=== PATIENT | female | born 1975 | race African-American/Black ===

== ENCOUNTER 2016-09-13 05:07 | Emergency (ER) | payer MEDICAID ==
[~2016-09-13] VITALS: Ht 160 cm; Wt 102.0 kg
[2016-09-13 05:09] VITALS: BP 130/82
== END 2016-09-13 09:28 | disposition left against medical advice (07) ==
LOC: ER 05:07
DX: R10.9 Unspecified abdominal pain (principal); Z53.21 Procedure and treatment not carried out due to patient leaving prior to being seen by health care provider